=== PATIENT | female | born 1985 | race Caucasian/White ===

== ENCOUNTER 2021-08-28 10:58 | Emergency (ER) | payer BC ==
[~2021-08-28] VITALS: Ht 162.6 cm; Wt 106.1 kg
[2021-08-28] MEDS ORDERED: PRENA1 TRUE CO1 EACH PO (11:14)
== END 2021-08-28 14:21 ==
LOC: ER 10:58
DX: N39.0 Urinary tract infection, site not specified (principal); D64.9 Anemia, unspecified; R35.89 Other polyuria